=== PATIENT | female | born 1985 | race Caucasian/White ===

== ENCOUNTER 2017-04-11 20:46 | Emergency (ER) | payer OTHER ==
[~2017-04-11] VITALS: Ht 152.4 cm; Wt 129.6 kg
[2017-04-11] MEDS ORDERED: FLUO20CA19 PO (21:25)
[2017-04-11] MEDS ORDERED: OMEP40CA2 PO (21:25)
[2017-04-11] MEDS ORDERED: FLUO40CA PO (21:25)
[2017-04-11] MEDS ORDERED: CLON-412 PO (21:25)
[2017-04-11] MEDS ORDERED: SUBO8MIS (21:25)
[2017-04-11] MEDS ORDERED: ZOLP10TA2 PO (21:25)
[2017-04-11] MEDS ORDERED: MORPHINE 4 MG/ML 1ML SYRINGE IV ONE (22:00)
[2017-04-11] MEDS ORDERED: NS 1,000 ML IV ONE (22:00)
[2017-04-11] MEDS ORDERED: ONDANSETRON 4MG/2ML VIAL (J2405) IV ONE (22:15)
[2017-04-11] MEDS ORDERED: LIDOCAINE 1% MDV 20ML VIAL SC ONE (22:15)
[2017-04-11 22:17] LABS: BASO % 0.5 % (0.0-1.0); EOS # 0.1 10^3/uL (0.0-0.50); EOS % 2.2 % (0.0-3.0); IMMATURE GRANULOCYTE % 0.3 % (0-0); LYMPH # 1.5 10^3/uL (1.5-4.5); LYMPH % 23.1 % (24.0-44.0); MEAN CORPUSCULAR HEMOGLOBIN 28.5 pg (27.0-33.0); MEAN CORPUSCULAR HGB CONC 31.6 g/dl (32.0-36.5); MEAN CORPUSCULAR VOLUME 90.2 fl (80.0-96.0); MONO # 0.4 10^3/uL (0.0-0.8); MONO % 6.5 % (0.0-5.0); NEUTROPHILS # 4.3 10^3/uL (1.8-7.7); NEUTROPHILS % 67.4 % (36.0-66.0); PLATELET COUNT, AUTOMATED 242 10^3/uL (150-450); RED CELL DISTRIBUTION WIDTH 14.6 % (11.5-14.5); WHITE BLOOD COUNT 6.3 10^3/uL (4.0-10.0)
[2017-04-11 22:32] LABS: ANION GAP 4 MEQ/L (8-16); BLOOD UREA NITROGEN 6 MG/DL (7-18); CALCIUM LEVEL 8.3 MG/DL (8.5-10.1); CARBON DIOXIDE LEVEL 33 MEQ/L (21-32); CHLORIDE LEVEL 102 MEQ/L (98-107); CREATININE FOR GFR 0.63 MG/DL (0.55-1.02); GLOMERULAR FILTRATION RATE > 60.0 (>60); GLUCOSE, FASTING 97 MG/DL (70-105); POTASSIUM SERUM 4.3 MEQ/L (3.5-5.1); SODIUM LEVEL 139 MEQ/L (136-145)
[2017-04-11 23:44] VITALS: BP 130/78
[2017-04-11] MEDS ORDERED: HYDROmorphone HCL 1 MG/ML SYRINGE (J1170) IV PRN (23:45)
--- NOTE | 2017-04-12 11:38 | ER ---
DATE OF CONSULTATION: 04/11/2017 INDICATION: Right ankle fracture-dislocation. HISTORY OF PRESENT ILLNESS: Flora is a 31-year-old female who was at a wedding when she slipped on a wet surface on stairs and suffered a right ankle injury. There was deformity and she was unable to bear weight. She is complaining of significant right ankle pain. Patient is open about being on Suboxone from prior, I believe, oral opioid dependence. She denies intravenous (IV) drug use. She is denying numbness in her toes. Denies prior ankle injuries. PAST MEDICAL HISTORY: As above, as well as anxiety. PAST SURGICAL HISTORY: 1. Cholecystectomy. 2. Gastric bypass 7 years ago. For medications, allergies and review of systems, please see the patient intake in the emergency room documentation, which I reviewed. SOCIAL HISTORY: Patient occasionally smokes cigarettes. She drinks alcohol socially. Denies IV drug use. 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 Exam reveals a female who is no distress. She is alert and oriented times three. Neurologic: Appropriate mood and affect. She is not showing any signs of being overtly intoxicated. Cardiovascular: 2+ DP pulse with a regular rate. Pulmonary: Regular nonlabored breathing. Skin in the right ankle reveals a 5 mm abrasion with a very superficial skin flap at the medial aspect of the ankle. There is no active oozing or bleeding. No concern for an open fracture. Musculoskeletal: There is moderate diffuse swelling in the ankle. She is tender at both the medial and lateral malleoli. The ankle has a mild deformity. She is able to fire EHL, FHL, TA, and GS. Sensation to light touch is grossly intact. RADIOLOGY: Three views right ankle were obtained and reveal a trimalleolar ankle fracture-subluxation. The talus is subluxated laterally on the mortis view. There is significantly displaced medial malleolar fracture and a Ortiz B fibular fracture. ASSESSMENT AND PLAN: Flora is a 31-year-old female with a right ankle fracture-dislocation. I explained that this is an operative injury, but given that it is a closed injury and she is significantly swollen, it would be most appropriate to perform a closed reduction and splinting and then perform an open reduction, internal fixation once the soft tissues have calmed down. I recommended an ankle block for analgesia in addition to the intravenous (IV) pain medication she has received. I explained the risks and benefits of an ankle joint block, closed reduction and splinting. Written informed consent was obtained. PROCEDURE: The right ankle was marked by myself and I confirmed the patient's name, medical record number and date of . The right ankle joint was sterilely prepped with chlorhexidine and then I, using sterile gloves, injected 10 mL of 1% lidocaine with a 22 gauge needle just medial to the tibialis anterior. I aspirated the ankle, which revealed blood and then injected the 10 mL, which she tolerated reasonably well. I gave 10 minutes for the anesthetic to take effect. I then performed a closed reduction with longitudinal traction and internal rotation. I then applied a well padded both posterior and sugar-tong splint with plaster and applied a rigorous Benjamin's type mold. Once the cast was set, she was sent for three views of the right ankle. She had intact distal motor and sensory exam following closed reduction. Post reduction xrays showed persistent widening of medial clear space so I repeated the closed reduction with new splint after patient received dose of IV Dilaudid and then repeat post reduction xrays showed excellent reduction with talus sitting under the tibial plafond. At this time, she needs to followup either with myself or Dr. Melendez on Thursday, 04/15 and she will have to undergo open reduction, internal fixation (ORIF) the following week once her soft tissues have calmed down. DICK
--- NOTE | 2017-04-12 11:42 | REP ---
REASON: Pain after trauma. The distal fibula is fractured. The medial malleolus is fractured and displaced inferiorly. The lateral view shows an ossific density adjacent to the posterior malleolus. I cannot confirm that the posterior malleolus is not fractured. A subtle fracture could be present. There is abnormal widening of the medial mortise with subluxation of the talus laterally. There is diffuse soft tissue swelling. IMPRESSION: Fractures and potential fracture with abnormal mortise and soft tissue swelling as described above. Signed by Bryant Feliz DO 04/12/2017 10:37 A
--- NOTE | 2017-04-12 11:42 | REP ---
REASON: Post reduction. All priors reviewed. Overlying casting material obscures the detail. These two views show significantly improved alignment involving fracture fragments and mortise. The lateral view does suggest a concomitant posterior malleolar fracture but difficult to evaluate due to the artifact. IMPRESSION: As above. Signed by Bryant Feliz DO 04/12/2017 10:37 A
--- NOTE | 2017-04-12 11:42 | REP ---
REASON: Trauma. See all prior ankle reports. There is a subtle lucency seen involving the base of the 2nd metatarsal, which is nondisplaced. The lucency is seen on multiple views. The finding is subtle. IMPRESSION: Lucency seen involving the base of the 2nd metatarsal as described above highly suspicious for a fracture. Clinical correlation is necessary. Consider further imaging with CT. Signed by Bryant Feliz DO 04/12/2017 10:37 A
--- NOTE | 2017-04-13 12:36 | REP ---
REASON: Status post reduction. There is a trimalleolar fracture difficult to evaluate due to overlying casting/splinting material. There is abnormal medial mortise widening consistent with persistent subluxation. IMPRESSION: As above. Signed by Bryant Feliz DO 04/14/2017 05:24 P
== END 2017-04-12 00:21 | disposition home or self-care (01) ==
LOC: M ED 20:46 → EDBD 20:46 → M ED 04-12 00:21
DX: S82.851A Displaced trimalleolar fracture of right lower leg, initial encounter for closed fracture (principal); W19.XXXA Unspecified fall, initial encounter; Y92.89 Other specified places as the place of occurrence of the external cause; Y93.9 Activity, unspecified; Y99.9 Unspecified external cause status; F17.200 Nicotine dependence, unspecified, uncomplicated; Z98.84 Bariatric surgery status; F41.9 Anxiety disorder, unspecified; F32.9 Major depressive disorder, single episode, unspecified; M35.9 Systemic involvement of connective tissue, unspecified; Z79.899 Other long term (current) drug therapy
CPT/HCPCS: 27818; 73600; 73610; 73630; 80048; 81025; 85025; 94760; 96374; 96375; 99284; G0480; J1170; J2405

== ENCOUNTER 2017-04-24 12:37 | Day surgery (SDC) | payer OTHER ==
[~2017-04-24] VITALS: Ht 172.7 cm; Wt 127.0 kg
[~2017-04-24 12:37] MED LIST: CLON-412 PO; FLUO20CA19 PO; FLUO40CA PO; OMEP40CA2 PO; SUBO8MIS; ZOLP10TA2 PO
[2017-04-24] MEDS ORDERED: dexameTHASONE 10 MG/1 ML VIAL PRES.FREE (J1100) ONE (12:38)
[2017-04-24] MEDS ORDERED: LIDOCAINE 1% MDV 20ML VIAL ONE (12:38)
[2017-04-24] MEDS ORDERED: ROPIvacaine 0.5% 30 ML INJECTION (J2795) ONE (12:38)
[2017-04-24] MEDS ORDERED: LR 1,000 ML IV SCH ×3 (13:00→21:00)
[2017-04-24] MEDS ORDERED: fentaNYL 100 MCG/2 ML INJECTION (J3010) As Ordered ONE ×2 (13:44→16:40)
[2017-04-24] MEDS ORDERED: MIDAZOLAM INJ 2 MG/2 ML VIAL (J2250) As Ordered ONE ×3 (13:44→17:02)
[2017-04-24 14:28] LABS: CONTROL LINE UCG INT CTR LINE PRESENT
[2017-04-24] MEDS ORDERED: MIDAZOLAM INJ 2 MG/2 ML VIAL (J2250) IV ONE (16:00)
[2017-04-24] MEDS ORDERED: fentaNYL 100 MCG/2 ML INJECTION (J3010) IV ONE (16:00)
[2017-04-24] MEDS ORDERED: LIDOCAINE 2% INJ 100 MG/5 ML SDV (FOR ANES.) As Ordered ONE (16:40)
[2017-04-24] MEDS ORDERED: PROPOFOL 200 MG/20 ML VIAL As Ordered ONE ×4 (16:40→18:43)
[2017-04-24] MEDS: fentaNYL 100 MCG/2 ML INJECTION (J3010) IV PRN ×4 (20:40→20:55)
[2017-04-24] MEDS ORDERED: ONDANSETRON 4MG/2ML VIAL (J2405) IV PRN (20:45)
[2017-04-24 21:45] VITALS: BP 136/84
[2017-04-24] MEDS: ACETAMINOPHEN 325 MG TAB PO SCH (22:11)
[2017-04-24] MEDS: diphenhydrAMINE 25 MG CAP PO PRN (22:11)
[2017-04-24 22:15] VITALS: BP 122/86
[2017-04-24 23:15] VITALS: BP 123/82
[2017-04-24] MEDS ORDERED: diphenhydrAMINE 25 MG CAP PO ONE (23:30)
[2017-04-24] MEDS: oxyCODONE 5MG TAB PO PRN (23:58)
[2017-04-25] VITALS (7 sets, daily range): BP systolic 107–138; BP diastolic 65–87
[2017-04-25] MEDS: ACETAMINOPHEN 325 MG TAB PO SCH ×3 (05:57→23:42)
[2017-04-25] MEDS: oxyCODONE 5MG TAB PO PRN ×3 (08:11→21:08)
--- NOTE | 2017-04-25 08:58 | REP ---
Right ankle two views postoperative study: There is internal fixation of the distal fibula. There is a fracture at the base of the medial malleolus. The mortise is symmetric. There is a fiberglass cast. Signed by Sai Ortiz MD 04/25/2017 08:50 A
[2017-04-25] MEDS ORDERED: ASPIRIN 325 MG TAB PO SCH (09:00)
[2017-04-25] MEDS: OMEPRAZOLE 20 MG CAP PO SCH (09:10)
[2017-04-25] MEDS: VITAMIN D 1,000 INTERNATIONAL UNITS TABLET PO SCH (09:10)
[2017-04-25] MEDS: FLUoxetine 20 MG CAP PO SCH (09:10)
[2017-04-25] MEDS ORDERED: cloNIDine 0.1 MG TAB PO ONE (15:00)
[2017-04-25] MEDS ORDERED: RIVAROXABAN 10 MG TAB (XARELTO) PO SCH (18:00)
[2017-04-25] MEDS: diphenhydrAMINE 25 MG CAP PO PRN (21:07)
[2017-04-26] MEDS: oxyCODONE 5MG TAB PO PRN ×4 (00:53→13:22)
[2017-04-26] MEDS: ACETAMINOPHEN 325 MG TAB PO SCH ×2 (04:57→13:21)
[2017-04-26 06:00] VITALS: BP 124/86
[2017-04-26] MEDS ORDERED: TRAM50TA2 PO (06:46)
[2017-04-26] MEDS ORDERED: XARE10TA PO (06:46)
[2017-04-26] MEDS: VITAMIN D 1,000 INTERNATIONAL UNITS TABLET PO SCH (09:35)
[2017-04-26] MEDS: FLUoxetine 20 MG CAP PO SCH (09:36)
[2017-04-26] MEDS: OMEPRAZOLE 20 MG CAP PO SCH (09:36)
--- NOTE | 2017-04-27 19:01 | RO ---
DATE OF PROCEDURE: 04/24/2017 PREPROCEDURE DIAGNOSIS: Right SER IV ankle fracture. POSTPROCEDURE DIAGNOSIS: Right SER IV ankle fracture. SURGEON: Sury Melendez MD ANESTHESIA: General endotracheal. ESTIMATED BLOOD LOSS: 50 mL. IMPLANTS: Synthes distal fibula locking plate with associated screws. Two lag screws, one 3.5 mm and one 2.7 mm. One syndesmotic screw. CONDITION: Stable to recovery. INDICATIONS: lFora Dasilva is a 31-year-old female who sustained a right SER IV ankle fracture after a fall. The patient had been reduced in the emergency room and once again in the office. She was kept in a cast over the 2 week period while her swelling improved. Given the instability of her ankle fracture, she was taken to the operating room for operative fixation. Risks and benefits of the surgery were discussed with the patient in detail and informed consent was obtained. A postoperative plan for her pain was developed with her PCP as the patient is on Suboxone. DESCRIPTION OF PROCEDURE: The patient was met in the preoperative holding area where her right lower extremity was marked as the correct operative site. She underwent a block by the anesthesiologist without difficulty. She was then transferred to the operating room and placed in the supine position on the operating bed. She underwent spinal anesthesia without difficulty. A tourniquet was applied to the upper thigh. A bump was placed under the ipsilateral hip. Her right lower extremity underwent chlorhexidine wash and then was prepped and draped in a normal sterile fashion. Preoperative antibiotics were administered. An incision was made over the posterolateral aspect of the fibula. Careful dissection was performed proximally with care to avoid the superficial peroneal nerve. Thick flaps were developed distally. The fracture was identified and cleaned of any hematoma and debris. It was reduced using the pointed reduction clamp and secured using K wires. Following this, a 3.5 mm lag screw was placed. There was an anterolateral piece that was separate from this that was secured using a 2.7 mm screw. Reduction was confirmed on AP, mortise and lateral views. A five-hole plate was selected. This was secured proximally using 3.5 mm cortical screws and distally using the 2.7 mm locking screws. It was noted that her bone was very soft distally. After the plate was placed, the ankle was stressed under live fluoroscopy and was found to have medial clear space widening. There was a large abrasion over the medial aspect of the ankle and it was not deemed safe to make an incision through this area to either fix the deltoid or anterior colliculus fracture. A small poke hole incision was made posterior to the medial abrasion and a large clamp was used to reduce the syndesmosis as I did not have a capable education assistant to reduce the syndesmosis manually while I placed the syndesmotic screw. The screw was placed and found to be satisfactory on AP and lateral views. The ankle was stressed again under live fluoroscopy and found to be stable after the syndesmotic screw placement. Final x-rays were performed in the AP, mortise and lateral views. These showed satisfactory reduction and hardware placement. All wounds were copiously irrigated. Deep tissues were closed using #2-0 Vicryl. Subcutaneous tissues were closed using #3-0 Vicryl and the skin was closed using #3-0 nylon. The patient was placed in a well padded cast. She was transferred to the postanesthesia care unit in stable condition. PLAN: The patient will be nonweightbearing in her right lower extremity in a cast. She will use Xarelto for deep vein thrombosis (DVT) prophylaxis. She will be on oxycodone short-term but then will restart her Suboxone and be on tramadol. We will see her back in 1 week time for a wound check. The patient did get admitted to the hospital for pain control postoperatively. DICK
--- NOTE | 2017-04-30 08:09 | REP ---
Right ankle intraoperative fluoroscopic views during internal fixation of the distal fibula: A series of eight films are performed. The final films demonstrate the fracture and hardware to be in satisfactory positions alignment. There is also a fracture of the medial malleolus. Fluoroscopic exposure time is 1 minute 8 seconds. Fluoroscopic views are performed with last image hold technology and require no additional radiation. Signed by Sai Ortiz MD 04/26/2017 12:11 P
== END 2017-04-26 13:27 | disposition home or self-care (01) ==
LOC: M SDC 12:37 → M MS5PR 21:18 → M SDC 04-26 13:27
PROVIDERS: ATTEND Orthopaedic Surgery
DX: S82.851A Displaced trimalleolar fracture of right lower leg, initial encounter for closed fracture (principal); W18.49XA Other slipping, tripping and stumbling without falling, initial encounter; Y92.89 Other specified places as the place of occurrence of the external cause; Y99.9 Unspecified external cause status; Y93.9 Activity, unspecified; K21.9 Gastro-esophageal reflux disease without esophagitis; Z98.84 Bariatric surgery status; F17.210 Nicotine dependence, cigarettes, uncomplicated; F32.9 Major depressive disorder, single episode, unspecified; Z79.899 Other long term (current) drug therapy
CPT/HCPCS: 27822; 27829; 64445; 73600; 73610; 84703; 97116; 97162; 97530; C1713; J0690; J1100; J2250; J2795; J3010

== ENCOUNTER 2017-05-15 06:21 | Inpatient (IN) | payer OTHER ==
[~2017-05-15] VITALS: Ht 170.2 cm; Wt 127.0 kg
[2017-05-15] VITALS (7 sets, daily range): BP systolic 130–178; BP diastolic 75–100
[~2017-05-15 06:21] MED LIST changes: +TRAM50TA2 PO; +XARE10TA PO
[2017-05-15] MEDS ORDERED: EPINEPHrine INJ 1 MG/ML 1ML AMP ONE (06:22)
[2017-05-15] MEDS ORDERED: ROCURONIUM BROMIDE 50 MG/5 ML VIAL/SYRINGE ONE (06:22)
[2017-05-15] MEDS ORDERED: MIDAZOLAM INJ 2 MG/2 ML VIAL (J2250) As Ordered ONE ×2 (06:42→07:57)
[2017-05-15] MEDS ORDERED: fentaNYL 100 MCG/2 ML INJECTION (J3010) As Ordered ONE (06:42)
[2017-05-15 07:04] LABS: CONTROL LINE UCG INT CTR LINE PRESENT
[2017-05-15] MEDS ORDERED: ceFAZolin 2 GM/D5W 50 ML IV BAG (J0690) As Ordered ONE (07:09)
[2017-05-15] MEDS: MIDAZOLAM INJ 2 MG/2 ML VIAL (J2250) IV PRN ×2 (07:11→07:12)
[2017-05-15] MEDS: fentaNYL 100 MCG/2 ML INJECTION (J3010) IV PRN ×13 (07:11→13:51)
[2017-05-15] MEDS ORDERED: dexameTHASONE 4 MG/ML 1ML VIAL (J1100) As Ordered ONE (07:57)
[2017-05-15] MEDS ORDERED: LIDOCAINE 2% INJ 100 MG/5 ML SDV (FOR ANES.) As Ordered ONE (07:57)
[2017-05-15] MEDS ORDERED: ROCURONIUM BROMIDE 50 MG/5 ML VIAL/SYRINGE As Ordered ONE (07:57)
[2017-05-15] MEDS ORDERED: PROPOFOL 200 MG/20 ML VIAL As Ordered ONE (07:57)
[2017-05-15] MEDS ORDERED: fentaNYL 250 MCG/5 ML INJECTION (J3010) As Ordered ONE (07:57)
[2017-05-15] MEDS ORDERED: GLYCOPYRROLATE INJ 0.2 MG/ML 2 ML VIAL As Ordered ONE (08:38)
[2017-05-15] MEDS ORDERED: NEOSTIGMINE 10 MG/10 ML VIAL (J2710) As Ordered ONE (08:38)
[2017-05-15] MEDS ORDERED: ONDANSETRON 4MG/2ML VIAL (J2405) As Ordered ONE ×2 (08:38→11:10)
[2017-05-15] MEDS ORDERED: HYDROmorphone HCL 2 MG/ML 1ML VIAL (J1170) As Ordered ONE (08:43)
[2017-05-15] MEDS ORDERED: LABETALOL HCL 100 MG/20 ML VIAL As Ordered ONE (09:38)
[2017-05-15] MEDS ORDERED: PERCOCET 5MG/325MG TAB As Ordered ONE (11:08)
[2017-05-15] MEDS ORDERED: LR 1,000 ML IV SCH ×2 (11:15)
[2017-05-15] MEDS ORDERED: METOCLOPRAMIDE INJ 10MG/2ML VIAL (J2765) IV PRN (11:15)
[2017-05-15] MEDS ORDERED: MEPERIDINE INJ 25 MG/ML VIAL (J2175) IV PRN (11:15)
[2017-05-15] MEDS ORDERED: ONDANSETRON 4MG/2ML VIAL (J2405) IV PRN (11:15)
[2017-05-15] MEDS: PERCOCET 5MG/325MG TAB PO PRN ×2 (11:30→12:00)
[2017-05-15] MEDS ORDERED: FLEET ENEMA PR PRN (11:30)
[2017-05-15] MEDS ORDERED: oxyCODONE 5MG TAB PO PRN (11:30)
--- NOTE | 2017-05-15 11:58 | REP ---
C-ARM RIGHT ANKLE COMPLETE: 05/15/2017. COMPARISON: 16 images from C-arm fluoroscopy provided to Dr. Melendez of the orthopedic division are reviewed. This is compared to an AP lateral postoperative ankle series 04/25/2017. CLINICAL HISTORY: ORIF followup medial malleolar fracture. FINDINGS: Hardware from plate and screw fixation previous distal fibular ORIF is again seen. There is an additional screw across the fibular-tibial syndesmosis replacing a short screw above the previous syndesmotic screw. In addition, there are two K-wires, another screw in the distal tibia, and cerclage wires reducing the displaced fracture fragment of the medial malleolus to essentially anatomic alignment. FLUOROSCOPY TIME: 2 minutes 2 seconds. Signed by Lyle Ramirez MD 05/15/2017 05:32 P
[2017-05-15] MEDS: MORPHINE 2 MG/ML 1ML SYRINGE IV PRN ×2 (13:37→17:44)
[2017-05-15] MEDS: ACETAMINOPHEN 500 MG TAB PO SCH ×2 (13:37→21:01)
[2017-05-15] MEDS: oxyCODONE 5MG TAB PO PRN ×2 (15:07→19:43)
[2017-05-15] MEDS: OMEPRAZOLE 20 MG CAP PO SCH (17:43)
[2017-05-15] MEDS: FLUoxetine 20 MG CAP PO SCH (17:44)
[2017-05-16] MEDS: oxyCODONE 5MG TAB PO PRN ×3 (01:23→10:28)
[2017-05-16 02:00] VITALS: BP 143/79
[2017-05-16 05:00] VITALS: BP 179/92
[2017-05-16] MEDS: ACETAMINOPHEN 500 MG TAB PO SCH (06:10)
[2017-05-16] MEDS ORDERED: OXYC-141 PO (07:06)
[2017-05-16] MEDS ORDERED: VITAMIN D 1,000 INTERNATIONAL UNITS TABLET PO SCH (09:00)
[2017-05-16] MEDS: MORPHINE 2 MG/ML 1ML SYRINGE IV PRN (09:38)
[2017-05-16] MEDS: FLUoxetine 20 MG CAP PO SCH (09:38)
[2017-05-16] MEDS: OMEPRAZOLE 20 MG CAP PO SCH (09:39)
[2017-05-16 10:00] VITALS: BP 140/82
[2017-05-16] MEDS ORDERED: RIVAROXABAN 10 MG TAB (XARELTO) PO SCH (18:00)
--- NOTE | 2017-05-21 13:08 | RO ---
DATE OF PROCEDURE: 05/15/2017 PREPROCEDURE DIAGNOSIS: Right ankle hardware failure. POSTPROCEDURE DIAGNOSIS: Right ankle hardware failure. PROCEDURE: Revision right ankle open reduction internal fixation. SURGEON: Dr. Sury Melendez. PASTRY ARTIST: ERIK Schmidt; Blake Gil MD ANESTHESIA: General endotracheal anesthesia with possible block. ESTIMATED BLOOD LOSS: 150. COMPLICATIONS: None, stable to recovery. IMPLANTS: Two 4.0 mm cortical screws, two 0.62 K wires, 18 gauge cerclage wire, 3.5 mm cortical screw with associated washer all Synthes. INDICATION: Flora Looney is a 31-year-old female who previously underwent open reduction internal fixation of a right distal fibular fracture and syndesmosis approximately 3 weeks ago. Unfortunately, the patient had been weight bearing on her cast and has lost her reduction of her syndesmosis. Syndesmosis screws are backing out in the medial clear space widened on her x-rays. The patient understands she needs to be non-weight bearing however, was having difficulties getting up in the middle of the night with help and had begun weight bearing on her cast. Risks and benefits of revision surgery were discussed with the patient in detail. Informed consent was obtained in the office. PROCEDURE: The patient was met in the preoperative holding area where her right lower extremity was marked as the correct operative side. Informed consent was reviewed. She was then taken to the postanesthesia care unit where she underwent a popliteal block by anesthesia. Following this, she was taken to the operating room where she was transferred to the operating room bed in the supine position. A bump was placed under the ipsilateral hip. Her bony prominences were well padded. She underwent general anesthesia without difficulty. Preoperative antibiotics were administered. An incision was made over the medial malleolus anterior to a wound that had not completely healed. This area had previously had a large abrasion at her initial surgery which precluded any prior incisions. Luckily this had healed which allowed access to her medial side. Dissection to the anterior colliculus fragment was performed. This was debrided of any hematoma and fibrous tissue. The medial gutter of the tibiotalar joint was accessed and all tissue was removed from this area. There did not seem to be a large amount of ligament prohibiting a reduction. There was some fibrous granulation type tissue that was removed. Following this, the anterior colliculus piece was reduced to the medial malleolus using a dental pick. It was secured using two 0.62 K wires. At this point, the lateral ankle was accessed using the patient's prior incision. An approximately 3 cm portion of the incision over the syndesmotic screws was incised. Blunt dissection to the level of the plate was performed and the syndesmotic screw which had loosened was removed. The syndesmosis was then reduced using a clamp. X-rays in AP, mortise and lateral views showed maintained satisfactory reduction. A 4.0 mm cortical screw was placed across the plate into the tibia. Just proximal to this, one of the fibula screws was removed and replaced with a second 4.0 mm cortical syndesmotic screw. The clamp was removed and the reduction was maintained. Next, using an 18-gauge wire, a tension band construct was placed over the anterior colliculus fracture. This included uses of 3.5 mm screw. The reduction and hardware placement was found to be satisfactory. All wounds were copiously irrigated and deep tissues were closed using #2-0 and #3-0 Vicryl. Skin was closed using #3-0 Nylon. A well padded cast was applied. The patient was awoken from general anesthesia without any difficulties. PLAN: The patient will be non-weight bearing in her cast. I will see her back at the 2 week time for a wound check. A long talk was held with the patient and her regarding the necessity for her to be non-weight bearing while this fracture heals which could be up to 3 months. They understand this and realize that if she walks on it again, there may be nothing I can do to fix the fracture. They did express understanding that the hardware can help hold the ankle in a reduced position but it is not strong enough to support her body weight. The patient will continue to be on Xarelto for deep venous thrombosis (DVT) prophylaxis.
--- NOTE | 2017-05-21 16:25 | DSES ---
DATE OF ADMISSION: 05/15/2017 DATE OF DISCHARGE: 05/16/2017 ADMITTING DIAGNOSIS: Right ankle hardware failure. OTHER DIAGNOSES: Anxiety, opioid dependence. DISCHARGE DIAGNOSIS: Revision of a right ankle open reduction internal fixation status post hardware failure. HISTORY: The patient is a 31-year-old female who underwent an open reduction internal fixation for a distal fibula and syndesmosis fracture. Unfortunately, she was weightbearing in her cast and lost reduction of the syndesmosis. She consented for an elective revision of a right ankle open reduction internal fixation with Dr. Melendez. HOSPITAL COURSE: The patient underwent a revision of her right ankle open reduction internal fixation under general anesthesia. Surgery was without complication. The patient was discharged with strict recommendations to be non-weightbearing in her cast. She will followup in our clinic in approximately 2 weeks for a wound check. She will take aspirin daily to prevent deep venous thrombosis. She was discharged on oral pain medications. She will resume her preoperative medications and diet. Please see medical record for additional details.
== END 2017-05-16 10:35 | disposition home or self-care (01) | DRG 493 ==
LOC: M SDC 06:21 → M MS5PR 11:00
PROVIDERS: ADMIT Orthopaedic Surgery; ATTEND Orthopaedic Surgery
PROC: 0SW Lower Joints, Revision (ICD-10-PCS; principal; 2017-05-15 07:30)
DX: S82.851D Displaced trimalleolar fracture of right lower leg, subsequent encounter for closed fracture with routine healing (principal); F11.20 Opioid dependence, uncomplicated; F41.9 Anxiety disorder, unspecified; Z79.899 Other long term (current) drug therapy; X58.XXXD Exposure to other specified factors, subsequent encounter; Y99.9 Unspecified external cause status

== ENCOUNTER 2019-11-15 17:31 | Emergency (ER) | payer OTHER ==
[~2019-11-15] VITALS: Ht 170.2 cm; Wt 113.6 kg
[~2019-11-15 17:31] MED LIST changes: -FLUO20CA19 PO; +FLUO20CA22 PO; -OMEP40CA2 PO; +OMEP40CA97 PO; +OXYC-141 PO
[2019-11-15] MEDS ORDERED: NORC1TAB7 PO (18:46)
[2019-11-15 19:00] VITALS: BP 131/69
--- NOTE | 2019-11-15 23:08 | REP ---
RIGHT KNEE SERIES: Six views of right knee performed. There appear to be fractures of the tibial spines. I see no other definite fracture or dislocation. IMPRESSION: Fracture of tibial spines. Electronically Signed by Sai Trujillo MD 11/16/2019 12:44 P
--- NOTE | 2019-11-15 23:09 | REP ---
RIGHT LOWER LEG: AP and lateral views of right lower leg are performed. There appear to be fractures of the tibial spines. There is metallic internal fixation in the distal tibia and fibula. There is no other evidence of acute fracture or dislocation. IMPRESSION: Fracture of tibial spines. Electronically Signed by Sai Trujillo MD 11/16/2019 12:45 P
== END 2019-11-15 19:01 | disposition home or self-care (01) ==
LOC: M ED 17:31
DX: S82.111A Displaced fracture of right tibial spine, initial encounter for closed fracture (principal); V86.95XA Unspecified occupant of 3- or 4- wheeled all-terrain vehicle (ATV) injured in nontraffic accident, initial encounter; Y93.89 Activity, other specified; Y92.9 Unspecified place or not applicable; Z98.84 Bariatric surgery status; Z98.890 Other specified postprocedural states

== ENCOUNTER 2020-03-09 18:21 | Emergency (ER) | payer OTHER ==
[~2020-03-09] VITALS: Ht 170.2 cm; Wt 104.5 kg
[2020-03-09 18:21] VITALS: BP 120/87
[~2020-03-09 18:21] MED LIST changes: +NORC1TAB7 PO
[2020-03-09] MEDS ORDERED: CLON1TAB17 PO (18:32)
[2020-03-09] MEDS ORDERED: TRAZ300T16 PO (18:32)
[2020-03-09] MEDS ORDERED: SUBO8MIS SL (18:32)
[2020-03-09] MEDS ORDERED: ACETAMINOPHEN 500 MG TAB PO ONE (19:45)
--- NOTE | 2020-03-09 20:09 | REPVR ---
PROCEDURE INFORMATION: Exam: US Duplex Right Lower Extremity Veins, Limited Exam date and time: 03/09/2020 8:00 PM Age: 34 years old Clinical indication: Pain; Leg, lower; Right TECHNIQUE: Imaging protocol: Real-time Duplex ultrasound of the Right Lower Extremity with 2-D domínguez scale, color Doppler flow and spectral waveform analysis with image documentation. Limited exam was focused on the right lower extremity veins. COMPARISON: No relevant prior studies available. FINDINGS: Right deep veins: Unremarkable. The common femoral, femoral, proximal profunda femoral and popliteal veins are patent without thrombus. Normal Doppler waveforms. Normal compressibility and/or augmentation response. Right superficial veins: Unremarkable. Saphenofemoral junction is patent without thrombus. Soft tissues: Unremarkable. IMPRESSION: No evidence of deep vein thrombosis. Electronically signed by: Pedro Villaseñor On 03/09/2020 20:09:06 PM
--- NOTE | 2020-03-09 20:46 | REPVR ---
PROCEDURE INFORMATION: Exam: XR Right Knee Exam date and time: 03/09/2020 8:36 PM Age: 34 years old Clinical indication: Injury or trauma; Injury history: Pain/trauma; Initial encounter; Sprain or strain; Patella or knee; Right; Additional info: Pain/traum TECHNIQUE: Imaging protocol: XR Right knee. Views: 1 or 2 views. COMPARISON: CR Knee, complete 11/15/2019 5:55 PM FINDINGS: Bones/joints: Fragmentation of the tibial spine may represent fractures. This is unchanged in comparison to 11/15/2019. Osteoporosis. Otherwise unremarkable. Soft tissues: Normal. IMPRESSION: Fragmentation of the tibial spine may represent fractures. This is unchanged in comparison to 11/15/2019. Electronically signed by: Pedro Villaseñor On 03/09/2020 20:45:57 PM
== END 2020-03-09 22:10 | disposition home or self-care (01) ==
LOC: M ED 18:21
DX: S82.111A Displaced fracture of right tibial spine, initial encounter for closed fracture (principal); X58.XXXA Exposure to other specified factors, initial encounter; Y92.9 Unspecified place or not applicable; Y93.9 Activity, unspecified; Y99.9 Unspecified external cause status; F41.9 Anxiety disorder, unspecified; F11.10 Opioid abuse, uncomplicated; E66.01 Morbid (severe) obesity due to excess calories; Z79.899 Other long term (current) drug therapy